=== PATIENT | male | born 1995 | race Caucasian/White ===

== ENCOUNTER 2017-05-03 23:50 | Emergency (ER) | payer SELFPAY ==
[~2017-05-03] VITALS: Ht 180.3 cm; Wt 90.0 kg
[2017-05-04] MEDS ORDERED: TETANUS, DIPHTHERIA, PERTUSSIS VAC/PF 0.5ML (>7YR OLD) IM ONE (06:45)
[2017-05-04] MEDS ORDERED: IBUPROFEN 800MG TABLET PO ONE (06:45)
[2017-05-04 08:30] VITALS: BP 108/65
== END 2017-05-04 08:38 | disposition home or self-care (01) ==
LOC: ER 05-04 04:22
DX: L03.113 Cellulitis of right upper limb (principal); F17.210 Nicotine dependence, cigarettes, uncomplicated
CPT/HCPCS: 73130; 90471; 90715; 99284